=== PATIENT | female | born 1965 | race Caucasian/White ===

== ENCOUNTER 2024-05-04 14:46 | Observation (INO) | payer MEDICAID, SELFPAY ==
[2024-05-04 14:48] VITALS: BP 149/67; PULSE 109; RESP 18; TEMP 36.6; O2SAT 100
--- NOTE | 2024-05-04 15:16 | EKG12_ITS ---
Test Reason : GEN ILL Blood Pressure : */* mmHG Vent. Rate : 103 BPM Atrial Rate : * BPM P-R Int : * ms QRS Dur : 72 ms QT Int : 356 ms P-R-T Axes : * 44 -9 degrees QTcB Int : 466 ms Atrial fibrillation with rapid ventricular response Low voltage QRS Nonspecific T wave abnormality Abnormal ECG Confirmed by SIOBHAN VITALE, ABBY ([id number]), commercial production editor DEANN MARES ([id number]) on 05/07/2024 6:35:53 AM Referred By: Venkata Dos Santos Confirmed By: ABBY MCCANN MD
--- NOTE | 2024-05-04 15:20 | EDS_ITS ---
HPI History of Present Illness Chief Complaint: General Illness Informant: patient and spouse/S.O. Narrative Narrative: 58-year-old female presenting to the emergency department with chief complaint of blisters on legs and arms and generalized pain. Patient states that she has a history of atrial fibrillation and was seeing a financial reporting accountant to undergo cardioversion on her. However she states that they do not take her health insurance. She states that she has prescribed medications in a plastic bag that she brought with her. Upon reviewing these she states that none of these are new. She is anticus and as well as diltiazem and takes a aspirin a day. She is not on a blood thinner stating that she was prescribed 1 but has not been taking it. She states that she has been thinking about getting a different financial reporting accountant here in [place] but has not made an appointment yet. She states for the past week she has had some red spots on her legs which she describes as red blisters. They are now appearing on her arms and painful for her. She states that her arms and her legs are so painful that she has been unable to get out of bed. She states that she has missed several days of work. She denies any strokelike symptoms. She denies any fevers. She states that she has been drinking plenty of fluids but that her urine is very dark. She denies any orthopnea dyspnea or cough. She states that nothing really has changed today to make her come to emergency she just could not take her continued symptoms any longer. She has never been to this institution before states that she has typically gotten her care at [facility]. [facility] Medical History (Updated 05/04/24 @ 19:[address] Gabriel Correa, ) Sleep apnea Restless legs Obesity Depression Atrial fibrillation Home Medications ?Medication ?Instructions ?Recorded ?Last Taken ?Type aspirin 81 mg chewable tablet 1 tab PO DAILY 05/04/24 Unknown History (Susan Chewable Low Dose Aspirin) citalopram 20 mg tablet 10 mg PO DAILY 05/04/24 Unknown History diltiazem HCl 240 mg 240 mg PO DAILY 05/04/24 Unknown History capsule,extended release 24 hr dofetilide 250 mcg capsule 250 mcg PO BID 05/04/24 Unknown History duloxetine 30 mg capsule,delayed 60 mg PO DAILY 05/04/24 Unknown History release potassium chloride 20 mEq 20 meq PO DAILY 05/04/24 Unknown History tablet,extended release Allergy/AdvReac Type Severity Reaction Status Date / Time No Known Allergies Allergy Verified 05/04/24 14:48 Social History Smoking Status: Never smoker ROS ROS ED Constitutional Constitutional ED: Reports chills; Denies fever(s), sweats or weight loss Eyes Eyes: Denies change in vision or diplopia ENT ENT ED: Denies ear pain, rhinorrhea or sore throat Cardiovascular Cardiovascular: Reports palpitations and racing heartbeat; Denies chest pain or orthopnea Respiratory/Chest Respiratory/Chest: Denies cough, dyspnea or orthopnea Gastrointestinal Gastrointestinal: Denies abdominal pain, diarrhea, nausea or vomiting Genitourinary Genitourinary ED: Denies dysuria, hematuria or urinary frequency Musculoskeletal Musculoskeletal: Reports arthralgias, myalgias and other Details: Reports pain everywhere Integumentary Reports rash; Denies abscess Neurologic Neurologic: Reports other Details: Generalized weakness ; Denies headache(s) Psychiatric Psychiatric: Denies anxiety, depression, suicidal ideation or suicidal thoughts Endocrine Endocrinology: Denies polydipsia, polyphagia or polyuria Allergic/Immunologic Allergic/Immunologic ED: Denies mouth swelling, tongue swelling or urticaria EXAM Physical Exam Narrative Exam Narrative: Patient laying awkwardly in the bed. She states that she cannot readjust herself. I inform her it is just me in the room at this time that I am not able to lift her she is able to stand on the side of the bed and shuffle her feet to get herself repositioned and then lay back down. Const Vital Signs: 05/04/24 14:48 05/04/24 15:27 05/04/24 16:48 Temperature 97.8 F Temperature Source Oral Pulse Rate 109 H 91 Respiratory Rate 18 16 Respiratory Effort Normal Respiratory Pattern Normal Blood Pressure 149/67 H 131/82 H Blood Pressure Mean 94 98 Pulse Ox 100 99 Oxygen Delivery Method Room Air Room Air 05/04/24 18:00 05/04/24 19:17 05/04/24 20:00 Temperature 97.9 F Temperature Source Pulse Rate 112 H 98 90 Respiratory Rate 16 16 18 Respiratory Effort Respiratory Pattern Blood Pressure 119/76 125/81 H 111/84 H Blood Pressure Mean 90 95 93 Pulse Ox 93 94 Oxygen Delivery Method Room Air Positive well nourished, well developed and obese General Appearance ED: well developed and NAD Nutritional Appearance: obese HEENT Reports normocephalic, head/scalp atraumatic and moist mucous membranes Eyes PERRL and EOMs intact bilaterally Neck no lymphadenopathy, supple and no JVD Resp normal respiratory effort and clear to auscultation bilaterally Cardio no murmurs Rate: tachycardic Rhythm: abnormal rhythm irregularly irregular GI normal to inspection, nondistended, normoactive bowel sounds and non-tender Palpation: soft Back/Spine no CVA tenderness and normal ROM Extremity Extremity Narrative: Mild swelling of the bilateral lower extremities. Neuro oriented x3 and CN's II-XII intact bilaterally Sensorium / Orientation: alert Motor Exam: strength 5/5 throughout Psych mental status grossly normal Mood & Affect: Negative for depressed or tearful Skin no wounds Skin Narrative: There are nonblanching lesions located in the lower extremities most predominant below the knee. The left great toe near the first MTP joint shows some mild swelling compared to the right as well as some erythema. She has small circular lesions on her arms particularly of the left thumb. These are tender to palpation. MDM MDM MDM Narrative Medical decision making narrative: Differential diagnosis includes but not limited to thrombocytopenia coagulation disorders renal dysfunction electrolyte abnormalities anemia endocarditis/bacteremia heart failure ACS ITP TTP vasculitis Patient's white count 9.7 hemoglobin 11.9 platelet count 3 of 5. Normal coags BMP with a creatinine of 1.3 glucose 151 troponin is 3 urinalysis 25-50 red cells 5-10 white cells 1+ bacteria negative nitrates sent for culture. Her CRP returned significantly elevated at 162. Sed rate returns elevated at 65. Patient received Solu-Medrol and a ANCA was sent. Patient received oxycodone for pain. Clinically I think the patient most likely has a vasculitis. Given that she is significantly limited on her ability to ambulate and given her inflammatory markers I think it is reasonable that we bring her into the hospital for further evaluation. I will speak with the hospitalist. Of note the patient is not currently on anticoagulants. Her Ángel vas score would suggest that she should be on it. This was discussed with the hospitalist. History & Record Review Discussion w/independent historian: Patient and Significant other Lab Data Attestation: I reviewed the patient's lab results. Labs: Laboratory Results - last 24 hr 05/04/24 05/04/24 15:02 15:24 WBC 9.7 RBC 3.89 L Hgb 11.9 L Hct 36.8 L MCV 94.6 MCH 30.6 MCHC 32.3 RDW Std Deviation 43.2 RDW Coeff of Mary 12.6 Plt Count 305 MPV 8.8 Immature Gran % (Auto) 0.600 Neut % (Auto) 81.1 H Lymph % (Auto) 12.7 L [place] % (Auto) 4.9 Eos % (Auto) 0.4 Baso % (Auto) 0.3 Absolute Neuts (auto) 7.8 H Absolute Lymphs (auto) 1.23 Nucleated RBC % 0 ESR 65 H PT 14.2 INR 1.1 APTT 30.6 Sodium 134 L Potassium 4.0 Chloride 102 Carbon Dioxide 26.0 Anion Gap 6 BUN 16 Creatinine 1.30 H Est GFR (MDRD) Af Amer 54 L Est GFR (MDRD) Non-Af 45 L BUN/Creatinine Ratio 12.3 Glucose 151 H Calcium 9.7 Total Bilirubin 0.70 Direct Bilirubin 0.20 AST 34 ALT 27 Alkaline Phosphatase 82 Troponin I High Sens 3 C-React Prot Ext Range 162.00 H Total Protein 7.8 Albumin 2.6 L Globulin 5.2 H Urine Color Beth Urine Clarity Sl. Cloudy Urine pH 6.0 Ur Specific [place] 1.015 Urine Protein 100 H Urine Glucose (UA) Normal Urine Ketones Negative Urine Occult Blood 250 H Urine Nitrite Negative Urine Bilirubin Negative Urine Urobilinogen 1 H Ur Leukocyte Esterase 25 H Urine RBC 25-50 SEEN Urine WBC 5-10 SEEN Ur Squamous Epith Cells 0-5 SEEN Ur Transition Epith Cell 0-5 SEEN Urine Bacteria 1+ Fine Granular Casts 0-5 SEEN Urine Mucus 1+ Radiography Diagnostic Testing: Clinical Impression(s) from Imaging Studies Chest X-Ray 05/04/24 15:42 IMPRESSION: No radiographic evidence of acute cardiopulmonary disease. Electronically Signed: Kg Fallon MD at 17:09 EST , EKG Initial EKG: Attestation: I personally reviewed and interpreted this EKG as follows: Comments: Atrial fibrillation with rapid ventricular response of 103 bpm Management Discussion w/another healthcare provider: Hospitalist (Dr Kotsonis) Discharge Plan Dx/Rx/DC Orders Clinical Impression: Atrial fibrillation, Vasculitis Disposition Disposition: Acute Care Hospital [facility]
[2024-05-04 15:38] LABS: Color, Urine Amber (Yellow); Glucose, Dipstick Normal (Normal); Ketone-Dipstick Negative (Negative); Leukocyte Esterase-Dipstick 25 /ul (Negative); Nitrite-Dipstick Negative (Negative); Occult Blood-Urine 250 /ul (Negative); Protein-Dipstick 100 mg/dl (Negative); Specific Gravity, Urine 1.015 (1.002-1.030); Urine Bilirubin Dipstick Negative (Negative); Urine Clarity Sl. Cloudy (Clear); Urine Urobilinogen 1 mg/dl (Normal)
--- NOTE | 2024-05-04 15:42 | RAD_ITS ---
EXAM: XR CHEST, 1 VIEW CLINICAL INDICATION: tachycardia TECHNIQUE: Frontal view of the chest. COMPARISON: No relevant prior studies available. FINDINGS: LUNGS AND PLEURAL SPACES: Unremarkable. No consolidation or edema. No pneumothorax. No effusion. HEART: Unremarkable. Cardiac silhouette not enlarged. MEDIASTINUM: Central airways and mediastinal contour are unremarkable. BONES/JOINTS: Unremarkable. No acute fracture. SOFT TISSUES: Unremarkable. RAD/Chest 1 View (Portable) IMPRESSION: No radiographic evidence of acute cardiopulmonary disease. Electronically Signed: Kg Fallon MD at 17:09 EST ,
[2024-05-04 15:47] LABS: Bacteria 1+ /hpf (None Seen); Fine Granular Cast- Urine 0-5 SEEN /lpf (0-5); Mucous, Urine 1+ /hpf (<or=2+); Red Blood Cells-Urine 25-50 SEEN /hpf (0-5); Squamous Epithelial Cells - UA 0-5 SEEN /hpf (5-10); Transitional Epithelial - Ur 0-5 SEEN /hpf (0-5); White Blood Cells 5-10 SEEN /hpf (0-5)
[2024-05-04 15:50] LABS: Absolute Lymphocyte Count 1.23 X10^3/uL (0.83-4.51); Absolute Neutrophil Count 7.8 X10^3/uL (2.0-7.7); Basophil# 0.03 X10^3/uL; Basophil% 0.3 % (0-1); Eosinophil# 0.04 X10^3/uL; Eosinophils% 0.4 % (0-5); Hematocrit 36.8 % (37-47); Hemoglobin 11.9 g/dL (12.0-15.0); Lymphocyte # 1.23 X10^3/ul (0.83-4.51); Lymphocyte % 12.7 % (19-41); Mean Corp Hgb Conc 32.3 g/dL (32-36); Mean Corpuscular Hgb 30.6 pg (27.0-32.0); Mean Corpuscular Volume 94.6 fL (81-99); Mean Platelet Vol. 8.8 fl (6.2-12.0); Monocyte# 0.47 X10^3/uL; Monocyte% 4.9 % (0-10); NRBC Flagged by Analyzer 0 % (0-5); Neutrophil # 7.84 X10^3/uL (2.7-7.7); Neutrophil % 81.1 % (47-70); Platelet Count 305 K/mm3 (150-450); RBC Distribution Width CV 12.6 % (11.6-14.6); RBC Distribution Width SD 43.2 fl (35.1-43.9); Red Blood Count 3.89 M/mm3 (4.2-5.4); White Blood Count 9.7 K/mm3 (4.4-11.0)
[2024-05-04 15:54] LABS: International Normalized Ratio 1.1; Prothrombin Time (Protime)PT. 14.2 SECONDS (11.7-14.9)
[2024-05-04 15:55] LABS: Partial Thromboplast Time 30.6 Seconds (24.1-36.2)
[2024-05-04 16:10] LABS: AST(SGOT) 34 U/L (15-37); Alanine Aminotransfer ALT/SGPT 27 U/L (13-56); Albumin, Serum 2.6 g/dL (3.2-5.0); Alkaline Phosphatase 82 U/L (45-117); Anion Gap 6 (5-15); BUN 16 mg/dL (7-18); BUN/Creat Ratio 12.3 RATIO (10-20); Calcium,Total 9.7 mg/dL (8.5-10.1); Chloride 102 mmol/L (98-107); EST Glomerular Filtration Rate 45 mL/min (>60); Est Glom Filt Rate - Afr Amer 54 mL/min (>60); Globulin 5.2 g/dL (2.2-4.2); Glucose 151 mg/dL (74-106); Protein, Total 7.8 g/dL (6.4-8.2); Sodium Level 134 mmol/L (136-145); Troponin-I HS 3 pg/mL (3.0-54.0)
[2024-05-04 16:48] VITALS: BP 131/82; PULSE 91; RESP 16; O2SAT 99
[2024-05-04] MEDS: MethylPREDNISolone 125 MG/2 ML Vial IV (17:24)
[2024-05-04] MEDS: oxyCODONE 5 MG Tablet 10 MG PO (17:24)
[2024-05-04 18:00] VITALS: BP 119/76; PULSE 112; RESP 16; O2SAT 93
[2024-05-04 18:59] LABS: Erythrocyte Sedimentation Rate 65 mm/hr (0-30)
[2024-05-04 19:17] VITALS: BP 125/81; PULSE 98; RESP 16; TEMP 36.6; O2SAT 94; BMI 42.7
[2024-05-04 20:00] VITALS: BP 111/84; PULSE 90; RESP 18
--- NOTE | 2024-05-04 20:24 | HP.PCM.HOS_ITS ---
HPI - General General Date of Admission: 05/04/24 HPI Fahad PORTILLO, is a 58 F who presents to the hospital for bilateral lower extremity rash as well as joint pain and myalgias with difficulty ambulating. She states that she noticed the rash started several days ago on her lower extremities and has extended up to her abdomen as well as the palms of of her hands. A PNC ANCA are being obtained in the ER but she does have a purpuric rash with an ESR of 65 and a CRP of 162. Creatinine is 1.30 but is unclear if this is her baseline or an ANDREA, she says that she has been drinking a lot of fluids but her urine is still dark she does have red blood cells and elevated protein in her UA. She is also in chronic A-fib with her heart rate in the low 100s she is on Cardizem and Tikosyn and states that she is supposed to be on anticoagulation that she does remember the name of which she supposed to take it she has not taken it because she was not sure what the plan was, she states that she was supposed to be cardioverted as she has had several ablations that have failed for her A-fib. [facility] Medical History (Updated 05/04/24 @ 21:26 by Cindy Mcneill) Bipolar 1 disorder Anxiety Sleep apnea Restless legs Obesity Depression Atrial fibrillation Home Medications ?Medication ?Instructions ?Recorded ?Last Taken ?Type aspirin 81 mg chewable tablet 1 tab PO DAILY 05/04/24 Unknown History (Susan Chewable Low Dose Aspirin) citalopram 20 mg tablet 10 mg PO DAILY 05/04/24 Unknown History diltiazem HCl 240 mg 240 mg PO DAILY 05/04/24 Unknown History capsule,extended release 24 hr dofetilide 250 mcg capsule 250 mcg PO BID 05/04/24 Unknown History duloxetine 30 mg capsule,delayed 60 mg PO DAILY 05/04/24 Unknown History release potassium chloride 20 mEq 20 meq PO DAILY 05/04/24 Unknown History tablet,extended release Allergy/AdvReac Type Severity Reaction Status Date / Time No Known Allergies Allergy Verified 05/04/24 14:48 Family History (Updated 05/04/24 @ 20:[address] Venkata Dos Santos MD) Other Heart disease Surgical History (Updated 05/04/24 @ 21:26 by Cindy Mcneill) H/O: hysterectomy History of cholecystectomy History of cardiac ablation for atrial fibrillation Social History Smoking Status: Never smoker ROS Constitutional Constitutional: Denies chills, fatigue, fever(s) or malaise Eyes Eyes: Denies blurry vision ENT HEENT: Denies headache(s) or nasal discharge Cardiovascular Cardiovascular: Denies chest pain, dyspnea on exertion or syncope Respiratory/Chest Respiratory/Chest: Denies cough, shortness of breath at rest or shortness of breath with exertion Gastrointestinal Gastrointestinal: Denies constipation, diarrhea, nausea or vomiting Genitourinary Genitourinary: Denies dysuria Musculoskeletal Musculoskeletal: Reports joint stiffness and myalgias Integumentary Integumentary: Reports new lesions and rash Neurologic Neurologic: Denies focal weakness, numbness or tremor(s) Psychiatric Psychiatric: Denies anxiety or depression Vital Signs Vital Signs Vital Signs: 05/04/24 14:48 05/04/24 15:27 05/04/24 16:48 Temperature 97.8 F Temperature Source Oral Pulse Rate 109 H 91 Respiratory Rate 18 16 Respiratory Effort Normal Respiratory Pattern Normal Blood Pressure 149/67 H 131/82 H Blood Pressure Mean 94 98 Pulse Ox 100 99 Oxygen Delivery Method Room Air Room Air 05/04/24 18:00 05/04/24 19:17 05/04/24 20:00 Temperature 97.9 F Temperature Source Pulse Rate 112 H 98 90 Respiratory Rate 16 16 18 Respiratory Effort Respiratory Pattern Blood Pressure 119/76 125/81 H 111/84 H Blood Pressure Mean 90 95 93 Pulse Ox 93 94 Oxygen Delivery Method Room Air Weight Weight: 257 lb 0.944 oz Body Mass Index (BMI) 42.7 Physical Exam Narrative General: Alert, Oriented x3, Cooperative, No apparent distress HEENT: Atraumatic, PERRLA, EOMI, Normocephalic Oral: Moist Mucosa Neck: Supple, No JVD Lungs: Diminished, Normal air movement, No rhonchi, No wheeze, No rales Cardiovascular: Irregular rate and rhythm, Normal S1, Normal S2, No murmurs Abdomen: Soft, Non Tender, Non-Distended, No Hepato-splenomegaly Extremities: No edema, Capillary Refill Less than 3 Seconds Skin: He has bilateral lower extremity purpura with punctate lesions on her abdomen as well as the palms of her hands Musculoskeletal: Tenderness to palpation of her left great toe Neurological: No focal neurological deficits, Motor Exam 5/5 strength throughout, Sensory exam intact to light touch and pain Psych/Mental Status: Normal Affect, Appropriate Results Lab / Micro Data 05/04/24 15:24 05/04/24 15:24 Labs: Laboratory Results - last 24 hr 05/04/24 15:02: Urine Color Beth, Urine Clarity Sl. Cloudy, Urine pH 6.0, Ur Specific [place] 1.015, Urine Protein 100 H, Urine Glucose (UA) Normal, Urine Ketones Negative, Urine Occult Blood 250 H, Urine Nitrite Negative, Urine Bilirubin Negative, Urine Urobilinogen 1 H, Ur Leukocyte Esterase 25 H, Urine RBC 25-50 SEEN, Urine WBC 5-10 SEEN, Ur Squamous Epith Cells 0-5 SEEN, Ur Transition Epith Cell 0-5 SEEN, Urine Bacteria 1+, Fine Granular Casts 0-5 SEEN, Urine Mucus 1+ 05/04/24 15:24: WBC 9.7, RBC 3.89 L, Hgb 11.9 L, Hct 36.8 L, MCV 94.6, MCH 30.6, MCHC 32.3, RDW Std Deviation 43.2, RDW Coeff of Mary 12.6, Plt Count 305, MPV 8.8, Immature Gran % (Auto) 0.600, Neut % (Auto) 81.1 H, Lymph % (Auto) 12.7 L, [place] % (Auto) 4.9, Eos % (Auto) 0.4, Baso % (Auto) 0.3, Absolute Neuts (auto) 7.8 H, Absolute Lymphs (auto) 1.23, Nucleated RBC % 0, ESR 65 H, PT 14.2, INR 1.1, APTT 30.6, Sodium 134 L, Potassium 4.0, Chloride 102, Carbon Dioxide 26.0, Anion Gap 6, BUN 16, Creatinine 1.30 H, Est GFR (MDRD) Af Amer 54 L, Est GFR (MDRD) Non-Af 45 L, BUN/Creatinine Ratio 12.3, Glucose 151 H, Calcium 9.7, Total Bilirubin 0.70, Direct Bilirubin 0.20, AST 34, ALT 27, Alkaline Phosphatase 82, Troponin I High Sens 3, C-React Prot Ext Range 162.00 H, Total Protein 7.8, A lbumin 2.6 L, Globulin 5.2 H Imaging Radiology Impression Chest X-Ray 05/04/24 15:42 IMPRESSION: No radiographic evidence of acute cardiopulmonary disease. Electronically Signed: Kg Fallon MD at 17:09 EST , Assessment & Plan Assessment/Plan (1) Vasculitis: PLAN: Plan 1. 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 Continue with IV steroids ? Will consult nephrology for evaluation and management assisting her vasculitis given findings on her UA with elevated protein and hematuria, will hold off any anticoagulation pending their evaluation 2. Chronic A-fib ? Continue with her Cardizem and Tikosyn ? I would recommend restarting anticoagulation once nephrology has decided whether they wanted to pursue any kind of biopsy for tissue 3. Anxiety/depression ? She is supposed to be on citalopram and duloxetine, will discontinue her citalopram and continue with her duloxetine only given that she does not need dual serotonin reuptake inhibitors as well as the fact that citalopram and Tikosyn can cause QT prolongation DVT: Lovenox 75 minutes was spent on direct patient care, including documentation as well as chart review and collaboration with colleagues Charges/Coding Visit Charges Inpatient E&M: 96404 Init Hosp L3
[2024-05-04 21:20] VITALS: BMI 42.1
[2024-05-04] MEDS: Dofetilide 250 MCG Capsule PO (21:52)
[2024-05-04] MEDS: 0.9% Normal Saline (1000mL) 1,000 ML 100 ML IV (21:54)
[2024-05-04 22:00] VITALS: BP 137/81; PULSE 103; RESP 18; TEMP 36.2; O2SAT 96
[2024-05-05 04:00] VITALS: BP 123/83; PULSE 82; RESP 18; TEMP 36.8; O2SAT 98
[2024-05-05 06:55] LABS: Absolute Neutrophil Count 7.4 X10^3/uL (2.0-7.7); Basophil# 0.01 X10^3/uL; Basophil% 0.1 % (0-1); Hematocrit 35.9 % (37-47); Hemoglobin 11.4 g/dL (12.0-15.0); Lymphocyte % 8.5 % (19-41); Mean Corp Hgb Conc 31.8 g/dL (32-36); Mean Corpuscular Hgb 30.2 pg (27.0-32.0); Mean Platelet Vol. 8.8 fl (6.2-12.0); Monocyte# 0.07 X10^3/uL; Monocyte% 0.9 % (0-10); NRBC Flagged by Analyzer 0 % (0-5); Neutrophil # 7.38 X10^3/uL (2.7-7.7); Platelet Count 287 K/mm3 (150-450); RBC Distribution Width CV 12.3 % (11.6-14.6); RBC Distribution Width SD 42.9 fl (35.1-43.9); Red Blood Count 3.78 M/mm3 (4.2-5.4); White Blood Count 8.2 K/mm3 (4.4-11.0)
[2024-05-05 07:11] LABS: Anion Gap 5 (5-15); BUN 19 mg/dL (7-18); BUN/Creat Ratio 17.6 RATIO (10-20); Calcium,Total 9.3 mg/dL (8.5-10.1); Chloride 105 mmol/L (98-107); Creatinine, Serum 1.08 mg/dL (0.55-1.02); EST Glomerular Filtration Rate 56 mL/min (>60); Est Glom Filt Rate - Afr Amer 67 mL/min (>60); Glucose 176 mg/dL (74-106); Potassium 4.6 mmol/L (3.5-5.1); Sodium Level 135 mmol/L (136-145)
[2024-05-05 08:47] VITALS: BP 116/73; PULSE 83; RESP 17; TEMP 36.6; O2SAT 97
[2024-05-05] MEDS: 0.9% Normal Saline (1000mL) 1,000 ML 100 ML IV (08:48)
[2024-05-05] MEDS: Aspirin 81 MG TAB.CHEW PO (08:50)
[2024-05-05] MEDS: DULoxetine Hcl 60 MG Capsule PO (08:50)
[2024-05-05] MEDS: Enoxaparin 40 MG/0.4 ML Syringe SC (08:50)
[2024-05-05] MEDS: Potassium Chloride Oral Tablet 20 MEQ PO (08:50)
[2024-05-05] MEDS: dilTIAZem CD 240 MG Capsule PO (08:50)
[2024-05-05] MEDS: Dofetilide 250 MCG Capsule PO ×2 (08:52→22:01)
--- NOTE | 2024-05-05 10:21 | CASEMGMT ---
MOLLY CASTILLO Assessment: Face to Face with pt for initial transition planning/care coordination assessment. RN ANNA introduced self and role at [facility], pt voices understanding and consents to assessment. Pt is A&O x4 and answers all questions appropriately at this time. Pt sitting up in bed in no distress with sig other at bedside. Pt agreeable to assessment with sig other present. Care providers, pharmacy, and demographics verified/updated. Admitting Dx: vasculitis with afib PCP:Anthony Specialists:massiel Carcamo Pharmacy: [facility] Insurance: [employer] Prescription Benefit: yes LNOK: Yash Carrasco, sig other Living Arrangements: Pt lives with sig other in a single story home with 1 step to enter. Pt reports she is I in ADL/IADLs and denies concerns at home. Transportation: Pt drives self and denies concerns with transportation. DME:CPAP HHC/SNF: Denies hx of Pt states no concerns with going home at time of dc. Pt states no further concerns/needs. CM to follow. Advised pt to ask CM if any further question/concerns/needs arise, voices understanding. Pt Goal: Home Plan: Home, follow for manuel Galaviz RN, CM
[2024-05-05 10:42] LABS: Protein, Urine (Random) 55.4 mg/dL (<11.9); Protein:Creat Ratio 351 mg/g CRE (0-200)
--- NOTE | 2024-05-05 13:20 | PCM.PROGNOTE ---
Subjective Subjective Patient seen and examined. She had no active complaint. She still complains of vascular bilateral lower extremities. She said her urine was cola colored yesterday but is now clear. Review of systems otherwise negative. Objective Data Objective Data Vital Signs: Vital Signs Temp Pulse Resp BP Pulse Ox O2 Del Method 98 F 83 17 116/73 97 Room Air 05/05/24 08:47 05/05/24 08:47 05/05/24 08:47 05/05/24 08:47 05/05/24 08:47 05/05/24 09:01 Oxygen Delivery Method Room Air Weight: 253 lb 4.978 oz Body Mass Index (BMI) 42.1 Intake & Output: Intake and Output for Last 24 Hours 05/03/24 05/04/24 05/05/24 23:59 23:59 23:59 Intake Total 1340 / 1340 Balance 1340 / 1340 Lab / Micro Data 05/05/24 06:15 05/05/24 06:15 Labs: Laboratory Results - last 24 hr 05/04/24 15:02: Urine Color Beth, Urine Clarity Sl. Cloudy, Urine pH 6.0, Ur Specific [place] 1.015, Urine Protein 100 H, Urine Glucose (UA) Normal, Urine Ketones Negative, Urine Occult Blood 250 H, Urine Nitrite Negative, Urine Bilirubin Negative, Urine Urobilinogen 1 H, Ur Leukocyte Esterase 25 H, Urine RBC 25-50 SEEN, Urine WBC 5-10 SEEN, Ur Squamous Epith Cells 0-5 SEEN, Ur Transition Epith Cell 0-5 SEEN, Urine Bacteria 1+, Fine Granular Casts 0-5 SEEN, Urine Mucus 1+ 05/04/24 15:24: WBC 9.7, RBC 3.89 L, Hgb 11.9 L, Hct 36.8 L, MCV 94.6, MCH 30.6, MCHC 32.3, RDW Std Deviation 43.2, RDW Coeff of Mary 12.6, Plt Count 305, MPV 8.8, Immature Gran % (Auto) 0.600, Neut % (Auto) 81.1 H, Lymph % (Auto) 12.7 L, [place] % (Auto) 4.9, Eos % (Auto) 0.4, Baso % (Auto) 0.3, Absolute Neuts (auto) 7.8 H, Absolute Lymphs (auto) 1.23, Nucleated RBC % 0, ESR 65 H, PT 14.2, INR 1.1, APTT 30.6, Sodium 134 L, Potassium 4.0, Chloride 102, Carbon Dioxide 26.0, Anion Gap 6, BUN 16, Creatinine 1.30 H, Est GFR (MDRD) Af Amer 54 L, Est GFR (MDRD) Non-Af 45 L, BUN/Creatinine Ratio 12.3, Glucose 151 H, Calcium 9.7, Total Bilirubin 0.70, Direct Bilirubin 0.20, AST 34, ALT 27, Alkaline Phosphatase 82, Troponin I High Sens 3, C-React Prot Ext Range 162.00 H, Total Protein 7.8, Albumin 2.6 L, Globulin 5.2 H 05/05/24 06:15: WBC 8.2, RBC 3.78 L, Hgb 11.4 L, Hct 35.9 L, MCV 95.0, MCH 30.2, MCHC 31.8 L, RDW Std Deviation 42.9, RDW Coeff of Mary 12.3, Plt Count 287, MPV 8.8, Immature Gran % (Auto) 0.500, Neut % (Auto) 90.0 H, Lymph % (Auto) 8.5 L, [place] % (Auto) 0.9, Eos % (Auto) 0.0, Baso % (Auto) 0.1, Absolute Neuts (auto) 7.4, Absolute Lymphs (auto) 0.70 L, Nucleated RBC % 0, Sodium 135 L, Potassium 4.6, Chloride 105, Carbon Dioxide 25.0, Anion Gap 5, BUN 19 H, Creatinine 1.08 H, Estim Creat Clear Calc 73.60, Est GFR (MDRD) Af Amer 67, Est GFR (MDRD) Non-Af 56 L, BUN/Creatinine Ratio 17.6, Glucose 176 H, Calcium 9.3 05/05/24 08:45: DAVID-1 Antibody TNP, SS-A/Ro IgG Antibody TNP, SS-B/La IgG Antibody TNP, Sm (Alfaro) Antibody TNP, [employer] Antibody TNP, Scl-70 Scleroderma Ab TNP, Double Strand DNA Ab TNP 05/05/24 08:45: Double Strand DNA Ab TNP 05/05/24 08:45: Double Strand DNA Ab TNP, Antichromatin Antibodies TNP, Centromere B Antibody TNP 05/05/24 10:19: U Random Total Protein 55.4 H, Urine Creatinine 158.00, Protein/Creatinin Ratio 351 H Radiography Diagnostic Testing: Radiology Impression Chest X-Ray 05/04/24 15:42 IMPRESSION: No radiographic evidence of acute cardiopulmonary disease. Electronically Signed: Kg Fallon MD at 17:09 EST Reading Location ID and State: [facility] / [place] Tel , Service support , Physical Exam Const alert, oriented x3, no apparent distress and well nourished General Appearance: cooperative HEENT normocephalic, moist oral mucous membranes and oropharynx normal Eyes PERRL and EOMs intact bilaterally Neck no lymphadenopathy and supple Lymph Lymphatic: no lymphadenopathy noted and no lymphedema noted Resp normal respiratory effort, normal air movement and clear to auscultation bilaterally Cardio regular rate, regular rhythm, S1 normal heart sound and S2 normal heart sound GI normal to inspection, nondistended, normoactive bowel sounds, soft to palpation, non-tender and non-distended Extremity normal capillary refill, no clubbing, cyanosis or edema and no calf tenderness General Extremity: no tenderness to palpation of joints or extremities Skin Skin Narrative: papular erythematous rash over lower legs, extending up to lower abdomen. General Skin Exam: no breakdown Neuro CN's II-XII intact bilaterally, no focal motor deficits and no sensory deficits noted Motor Exam: strength 5/5 throughout and general weakness Psych thought process normal and cooperative Appearance: appropriate Assessment & Plan Assessment/Plan (1) Vasculitis: PLAN: Plan #Rash, likely due to vasculitis has an erythematous, papular rash over lower extremities extending up to lower abdomen she also had ANDREA so concern is that this may be due to vasculitis C ANCA nad p ANCA ordered and pending Started on IV Solu-Medrol on admission. Nephrology consulted. Urinalysis showed elevated protein and hematuria. Will benefit from skin biopsy ESR and CRP elevated. #Chronic A-fib: On Cardizem and Tikosyn. Anticoagulants on hold as patient will benefit from biopsy #Anxiety and depression: On duloxetine. Citalopram discontinued on admission due to her being already on a serotonin reuptake inhibitor. DVT prophylaxis: SCDs. dc lovenox due to hematuria Charges/Coding Visit Charges Inpatient E&M: 39236 Subs Hosp L2
[2024-05-05 16:07] VITALS: BP 107/79; PULSE 93; RESP 14; TEMP 36.6; O2SAT 96
--- NOTE | 2024-05-05 19:15 | PCM.CONS.R ---
Assessment & Plan Assessment/Plan (1) Vasculitis: PLAN: has extensine non blanching rash. differential is fairly broad, vasculitis, infectious. no new drugs. no supplements. has 3 cats none new. will send blood cultures, hepatitis labs. serologies sent. dw Dr Cox. skin biopsy potentially. cr is better. HPI Consult Data Date of Consult: 05/05/24 HPI Narrative Reason for Consultation: vasculitis HPI Narrative: JANICE PORTILLO, is a 58 F who presents to hospital with rash. renal consulted for suspected renal vasculitis. no prior kidney disease. she says she had dark colored urine. now resolved. no flank pain/dysuria. no similar episodes in past. [facility] Medical History (Updated 05/04/24 @ 21:26 by Cindy Mcneill) Bipolar 1 disorder Anxiety Sleep apnea Restless legs Obesity Depression Atrial fibrillation Home Medications ?Medication ?Instructions ?Recorded ?Last Taken ?Type aspirin 81 mg chewable tablet 1 tab PO DAILY preventative 05/04/24 Unknown History (Susan Chewable Low Dose Aspirin) citalopram 20 mg tablet 10 mg PO DAILY mood 05/04/24 Unknown History diltiazem HCl 240 mg 240 mg PO DAILY heart 05/04/24 Unknown History capsule,extended release 24 hr dofetilide 250 mcg capsule 250 mcg PO BID heart 05/04/24 Unknown History duloxetine 30 mg capsule,delayed 60 mg PO DAILY mood 05/04/24 Unknown History release potassium chloride 20 mEq 20 meq PO DAILY suppliment 05/04/24 Unknown History tablet,extended release Allergy/AdvReac Type Severity Reaction Status Date / Time No Known Allergies Allergy Verified 05/04/24 14:48 Family History (Updated 05/04/24 @ 20:[address] Venkata Dos Santos MD) Other Heart disease Surgical History (Updated 05/04/24 @ 21:26 by Cindy Mcneill) H/O: hysterectomy History of cholecystectomy History of cardiac ablation for atrial fibrillation Social History Smoking Status: Never smoker ROS ROS Narrative negative except above Physical Exam Narrative Alert awake oriented x 3 no obvious distress no pallor no icterus no JVD s1s2 no murmurs lungs clear abdomen soft no organomegaly Rash + Lab / Micro Data 05/05/24 06:15 05/05/24 06:15 Labs: Laboratory Results - last 24 hr 05/05/24 06:15: WBC 8.2, RBC 3.78 L, Hgb 11.4 L, Hct 35.9 L, MCV 95.0, MCH 30.2, MCHC 31.8 L, RDW Std Deviation 42.9, RDW Coeff of Mary 12.3, Plt Count 287, MPV 8.8, Immature Gran % (Auto) 0.500, Neut % (Auto) 90.0 H, Lymph % (Auto) 8.5 L, [place] % (Auto) 0.9, Eos % (Auto) 0.0, Baso % (Auto) 0.1, Absolute Neuts (auto) 7.4, Absolute Lymphs (auto) 0.70 L, Nucleated RBC % 0, Sodium 135 L, Potassium 4.6, Chloride 105, Carbon Dioxide 25.0, Anion Gap 5, BUN 19 H, Creatinine 1.08 H, Estim Creat Clear Calc 73.60, Est GFR (MDRD) Af Amer 67, Est GFR (MDRD) Non-Af 56 L, BUN/Creatinine Ratio 17.6, Glucose 176 H, Calcium 9.3 05/05/24 08:45: DAVID-1 Antibody TNP, SS-A/Ro IgG Antibody TNP, SS-B/La IgG Antibody TNP, Sm (Alfaro) Antibody TNP, POTTERY [employer] DES[employer]ER Antibody TNP, Scl-70 Scleroderma Ab TNP, Double Strand DNA Ab TNP 05/05/24 08:45: Double Strand DNA Ab TNP 05/05/24 08:45: Double Strand DNA Ab TNP, Antichromatin Antibodies TNP, Centromere B Antibody TNP 05/05/24 10:19: U Random Total Protein 55.4 H, Urine Creatinine 158.00, Protein/Creatinin Ratio 351 H
[2024-05-05 21:59] VITALS: BP 121/84; PULSE 114; RESP 16; TEMP 36.7; O2SAT 96
--- NOTE | 2024-05-06 | LES_PTH ---
PATIENT: JANICE PORTILLO LOC: [facility] U#:[id number] AGE/SX: 58/F ROOM: [facility] RE05/04/[address]: Dr. Familia Huynh MD : 1965 BED: 1 DIS: 05/07/2024 SPEC #: [id number] RECD: 05/06/24 13:12 STATUS: MILAD REDat #: [id number] RANDAL: 05/06/24 00:[address]: Nimesh Morel DEPT: SURGICAL PATHOLOGY RECD BY: Jose Cruz Fernandez ENTERED: 05/07/24 10:18 SP TYPE: Lesion OTHR DR: MD Dr. Rudy Renee DO Dr. Nana Yaa Koram, MD Dr. Nicholas F Kotsonis, MD Dr. Prakash Chand, MD Dr. Rohini Kalisetti, MD Tissues: Skin of leg, NOS Procedures: Surgery Specimen Level IV HEADER OPERATION: Not noted PRE-OP DIAGNOSIS: Vasculitis with AFIB TISSUE SUBMITTED: Left lower extremity kaufman, 4mm punch biopsy MICROSCOPIC DIAGNOSIS Left lower extremity kaufman lesion, punch biopsy: Consistent with neutrophilic (leukocytoclastic) vasculitis. See comment. KIRSTEN 05/10/2024 COMMENT Correlation with clinical, laboratory findings and appropriate follow up are necessary. Case has been reviewed in consultation with Dr. Reyez who concurs with the above diagnosis. IDC:[email or web address] MICROSCOPIC DESCRIPTION Slides are reviewed. GROSS DESCRIPTION Received is one container labeled with the patient name and designated left kaufman punch biopsy. The specimen consists of a punch biopsy of zapata-white skin that measures 0.4 cm in length and 0.4 cm in diameter. The specimen is totally submitted in one cassette. /KIRSTEN:shabbir 05/07/24 TC:2 CPT:88355
[2024-05-06 04:00] VITALS: BP 135/80; PULSE 99; RESP 16; TEMP 36.9; O2SAT 96
[2024-05-06 04:48] LABS: Absolute Lymphocyte Count 1.28 X10^3/uL (0.83-4.51); Absolute Neutrophil Count 17.3 X10^3/uL (2.0-7.7); Basophil# 0.03 X10^3/uL; Basophil% 0.2 % (0-1); Hematocrit 34.2 % (37-47); Lymphocyte # 1.28 X10^3/ul (0.83-4.51); Lymphocyte % 6.7 % (19-41); Mean Corp Hgb Conc 32.2 g/dL (32-36); Mean Corpuscular Hgb 30.6 pg (27.0-32.0); Mean Corpuscular Volume 95.3 fL (81-99); Mean Platelet Vol. 8.7 fl (6.2-12.0); Monocyte# 0.29 X10^3/uL; Monocyte% 1.5 % (0-10); NRBC Flagged by Analyzer 0 % (0-5); Neutrophil # 17.26 X10^3/uL (2.7-7.7); Neutrophil % 90.1 % (47-70); Platelet Count 357 K/mm3 (150-450); RBC Distribution Width CV 12.4 % (11.6-14.6); RBC Distribution Width SD 43.2 fl (35.1-43.9); Red Blood Count 3.59 M/mm3 (4.2-5.4); White Blood Count 19.1 K/mm3 (4.4-11.0)
[2024-05-06 05:20] LABS: Anion Gap 6 (5-15); BUN 27 mg/dL (7-18); BUN/Creat Ratio 24.1 RATIO (10-20); Calcium,Total 9.5 mg/dL (8.5-10.1); Chloride 107 mmol/L (98-107); Creatinine, Serum 1.12 mg/dL (0.55-1.02); EST Glomerular Filtration Rate 53 mL/min (>60); Est Glom Filt Rate - Afr Amer 65 mL/min (>60); Estimated Creatinine Clearance 71.01 ml/min; Glucose 170 mg/dL (74-106); Potassium 4.2 mmol/L (3.5-5.1); Sodium Level 137 mmol/L (136-145)
[2024-05-06] MEDS: 0.9% Saline Lock 10 ML Syringe IV (06:11)
[2024-05-06 09:29] VITALS: BP 147/98; PULSE 93; RESP 18; TEMP 36.4; O2SAT 96
[2024-05-06] MEDS: DULoxetine Hcl 60 MG Capsule PO (09:29)
[2024-05-06] MEDS: dilTIAZem CD 240 MG Capsule PO (09:29)
[2024-05-06] MEDS: Potassium Chloride Oral Tablet 20 MEQ PO (09:29)
[2024-05-06] MEDS: Aspirin 81 MG TAB.CHEW PO (09:29)
[2024-05-06] MEDS: Dofetilide 250 MCG Capsule PO ×2 (09:29→21:18)
--- NOTE | 2024-05-06 11:58 | PN_ITS ---
Subjective Subjective Patient seen and examined. She had no active complaints. Review of systems otherwise negative. She has remained hemodynamically stable. Objective Data Objective Data Vital Signs: Vital Signs Temp Pulse Resp BP Pulse Ox O2 Del Method 97.5 F L 93 18 147/98 H 96 Room Air 05/06/24 09:29 05/06/24 09:29 05/06/24 09:29 05/06/24 09:29 05/06/24 09:29 05/06/24 09:29 Oxygen Delivery Method Room Air Weight: 253 lb 8.505 oz Body Mass Index (BMI) 42.1 Intake & Output: Intake and Output for Last 24 Hours 05/04/24 05/05/24 05/06/24 23:59 23:59 23:59 Intake Total 3415 / 3655 600 / 600 Balance 3415 / 3655 600 / 600 Lab / Micro Data 05/06/24 04:36 05/06/24 04:36 Labs: Laboratory Results - last 24 hr 05/06/24 04:36: WBC 19.1 H, RBC 3.59 L, Hgb 11.0 L, Hct 34.2 L, MCV 95.3, MCH 30.6, MCHC 32.2, RDW Std Deviation 43.2, RDW Coeff of Mary 12.4, Plt Count 357, MPV 8.7, Immature Gran % (Auto) 1.500 H, Neut % (Auto) 90.1 H, Lymph % (Auto) 6.7 L, [place] % (Auto) 1.5, Eos % (Auto) 0.0, Baso % (Auto) 0.2, Absolute Neuts (auto) 17.3 H, Absolute Lymphs (auto) 1.28, Nucleated RBC % 0, Sodium 137, Potassium 4.2, Chloride 107, Carbon Dioxide 24.0, Anion Gap 6, BUN 27 H, C reatinine 1.12 H, Estim Creat Clear Calc 71.01, Est GFR (MDRD) Af Amer 65, Est GFR (MDRD) Non-Af 53 L, BUN/Creatinine Ratio 24.1 H, Glucose 170 H, Calcium 9.5 Micro: Microbiology 05/04/24 15:02 Urine, Clean Catch Urine Culture - Preliminary Mixed Gram Pos & Gram Neg Org Physical Exam Const alert, oriented x3, no apparent distress and well nourished General Appearance: cooperative HEENT normocephalic, head/scalp atraumatic, moist oral mucous membranes and oropharynx normal Eyes PERRL and EOMs intact bilaterally Neck no lymphadenopathy and supple Lymph Lymphatic: no lymphadenopathy noted and no lymphedema noted Resp normal respiratory effort, normal air movement and clear to auscultation bilaterally Cardio regular rate, regular rhythm, S1 normal heart sound and S2 normal heart sound GI normal to inspection, nondistended, normoactive bowel sounds, soft to palpation, non-tender and non-distended Extremity normal capillary refill, no clubbing, cyanosis or edema and no calf tenderness General Extremity: no tenderness to palpation of joints or extremities Skin Skin Narrative: papular erythematous rash over lower legs,with larger areas of confluence on RLE, extending up to lower abdomen. Neuro CN's II-XII intact bilaterally, no focal motor deficits and no sensory deficits noted Motor Exam: strength 5/5 throughout and general weakness Psych thought process normal and cooperative Appearance: appropriate Assessment & Plan Assessment/Plan (1) Vasculitis: PLAN: Plan #Rash, likely due to vasculitis * has an erythematous, papular rash over lower extremities extending up to lower abdomen * she also had ANDREA so concern is that this may be due to vasculitis * C ANCA nad p ANCA ordered and pending * Started on IV Solu-Medrol on admission. Nephrology consulted. * Urinalysis showed elevated protein and hematuria. * Will benefit from skin biopsy * ESR and CRP elevated. * general surgery consulted for skin biopsy. * Discussed with nephrology. Will DC steroids as this could be infectious and if it is the steroids will make it worse. * #Chronic A-fib: On Cardizem and Tikosyn. Anticoagulants on hold as patient will benefit from biopsy #Anxiety and depression: * On duloxetine. Citalopram discontinued on admission due to her being already on a serotonin reuptake inhibitor. * DVT prophylaxis: SCDs. Disposition: * Anticipate patient can go home after she gets the skin biopsy and will get blood culture results to see if there is any infectious etiology. * She will need follow-up with rheumatology on outpatient basis once we have a conclusive diagnosis. Charges/Coding Visit Charges Inpatient E&M: 85639 Subs Hosp L2
[2024-05-06 13:17] LABS: Pathology Skin Biopsy SEE PATHOLOGY REPORT
--- NOTE | 2024-05-06 13:17 | CON.PCM.SX_ITS ---
HPI Consult Data Date of Consult: 05/06/24 HPI Narrative Reason for Consultation: Skin biopsy HPI Narrative: JANICE PORTILLO, is a 58 F who presented to the hospital with complaints of lower extremity rash for the past 7 days or so. It sounds as though she was also having myalgias and joint pain. She stated that the rash began on her upper thighs and then seem to progress towards her feet. She has also noticed these on her upper extremities as well. She was subsequently admitted for medical workup. It has been requested that general surgery perform a skin biopsy of one of the lesions. This was discussed with the patient. We discussed the details of the procedure as well as risks and benefits. She wishes to proceed. JANICE PORTILLO, is a 58 F who presents to the hospital for bilateral lower extremity rash as well as joint pain and myalgias with difficulty ambulating. She states that she noticed the rash started several days ago on her lower extremities and has extended up to her abdomen as well as the palms of of her hands. A PNC ANCA are being obtained in the ER but she does have a purpuric rash with an ESR of 65 and a CRP of 162. Creatinine is 1.30 but is unclear if this is her baseline or an ANDREA, she says that she has been drinking a lot of fluids but her urine is still dark she does have red blood cells and elevated protein in her UA. She is also in chronic A-fib with her heart rate in the low 100s she is on Cardizem and Tikosyn and states that she is supposed to be on anticoagulation that she does remember the name of which she supposed to take it she has not taken it because she was not sure what the plan was, she states that she was supposed to be cardioverted as she has had several ablations that have failed for her A-fib. [facility] Medical History (Updated 05/04/24 @ 21:26 by Cindy Mcneill) Bipolar 1 disorder Anxiety Sleep apnea Restless legs Obesity Depression Atrial fibrillation Home Medications ?Medication ?Instructions ?Recorded ?Last Taken ?Type aspirin 81 mg chewable tablet 1 tab PO DAILY preventative 05/04/24 Unknown History (Susan Chewable Low Dose Aspirin) citalopram 20 mg tablet 10 mg PO DAILY mood 05/04/24 Unknown History diltiazem HCl 240 mg 240 mg PO DAILY heart 05/04/24 Unknown History capsule,extended release 24 hr dofetilide 250 mcg capsule 250 mcg PO BID heart 05/04/24 Unknown History duloxetine 30 mg capsule,delayed 60 mg PO DAILY mood 05/04/24 Unknown History release potassium chloride 20 mEq 20 meq PO DAILY suppliment 05/04/24 Unknown History tablet,extended release Allergy/AdvReac Type Severity Reaction Status Date / Time No Known Allergies Allergy Verified 05/04/24 14:48 Family History (Updated 05/04/24 @ 20:[address] Venkata Dos Santos MD) Other Heart disease Surgical History (Updated 05/04/24 @ 21:26 by Cindy Mcneill) H/O: hysterectomy History of cholecystectomy History of cardiac ablation for atrial fibrillation Social History Smoking Status: Never smoker Lab / Micro Data 05/06/24 04:36 05/06/24 04:36 Labs: Laboratory Results - last 24 hr 05/06/24 04:36: WBC 19.1 H, RBC 3.59 L, Hgb 11.0 L, Hct 34.2 L, MCV 95.3, MCH 30.6, MCHC 32.2, RDW Std Deviation 43.2, RDW Coeff of Mary 12.4, Plt Count 357, MPV 8.7, Immature Gran % (Auto) 1.500 H, Neut % (Auto) 90.1 H, Lymph % (Auto) 6.7 L, [place] % (Auto) 1.5, Eos % (Auto) 0.0, Baso % (Auto) 0.2, Absolute Neuts (auto) 17.3 H, Absolute Lymphs (auto) 1.28, Nucleated RBC % 0, Sodium 137, Potassium 4.2, Chloride 107, Carbon Dioxide 24.0, Anion Gap 6, BUN 27 H, C reatinine 1.12 H, Estim Creat Clear Calc 71.01, Est GFR (MDRD) Af Amer 65, Est GFR (MDRD) Non-Af 53 L, BUN/Creatinine Ratio 24.1 H, Glucose 170 H, Calcium 9.5 Micro: Microbiology 05/04/24 15:02 Urine, Clean Catch Urine Culture - Preliminary Mixed Gram Pos & Gram Neg Org
--- NOTE | 2024-05-06 13:17 | EX.PCM.CON.S ---
Assessment & Plan Assessment/Plan (1) Vasculitis: PLAN: Plan The patient is a 58-year-old female who presented with a vasculitis type rash involving the lower extremities. Full-thickness skin punch biopsy was performed today. She tolerated this well. This was sent to pathology for review. HPI Consult Data Date of Consult: 05/06/24 HPI Narrative Reason for Consultation: Skin biopsy HPI Narrative: JANICE PORTILLO, is a 58 F who presented to the hospital with complaints of lower extremity rash for the past 7 days or so. It sounds as though she was also having myalgias and joint pain. She stated that the rash began on her upper thighs and then seem to progress towards her feet. She has also noticed these on her upper extremities as well. She was subsequently admitted for medical workup. It has been requested that general surgery perform a skin biopsy of one of the lesions. This was discussed with the patient. We discussed the details of the procedure as well as risks and benefits. She wishes to proceed. [facility] Medical History Bipolar 1 disorder Anxiety Sleep apnea Restless legs Obesity Depression Atrial fibrillation Home Medications ?Medication ?Instructions ?Recorded ?Last Taken ?Type aspirin 81 mg chewable tablet 1 tab PO DAILY preventative 05/04/24 Unknown History (Susan Chewable Low Dose Aspirin) citalopram 20 mg tablet 10 mg PO DAILY mood 05/04/24 Unknown History diltiazem HCl 240 mg 240 mg PO DAILY heart 05/04/24 Unknown History capsule,extended release 24 hr dofetilide 250 mcg capsule 250 mcg PO BID heart 05/04/24 Unknown History duloxetine 30 mg capsule,delayed 60 mg PO DAILY mood 05/04/24 Unknown History release potassium chloride 20 mEq 20 meq PO DAILY suppliment 05/04/24 Unknown History tablet,extended release Allergy/AdvReac Type Severity Reaction Status Date / Time No Known Allergies Allergy Verified 05/04/24 14:48 Family History Other Heart disease Surgical History H/O: hysterectomy History of cholecystectomy History of cardiac ablation for atrial fibrillation Social History Smoking Status: Never smoker ROS Eyes Eyes: Reports systems reviewed and no addt'l complaints, except as documented ENT HEENT: Reports systems reviewed and no addt'l complaints, except as documented Cardiovascular Cardiovascular: Reports systems reviewed and no addt'l complaints, except as documented Respiratory/Chest Respiratory/Chest: Reports systems reviewed and no addt'l complaints, except as documented Gastrointestinal Gastrointestinal: Reports systems reviewed and no addt'l complaints, except as documented Genitourinary Genitourinary: Reports systems reviewed and no addt'l complaints, except as documented Musculoskeletal Musculoskeletal: Reports systems reviewed and no addt'l complaints, except as documented Integumentary Integumentary: Reports systems reviewed and no addt'l complaints, except as documented Neurologic Neurologic: Reports systems reviewed and no addt'l complaints, except as documented Physical Exam Narrative She is alert and oriented x 3. She is in no acute distress Examination of the skin reveals red rash involving the lower extremities as well as upper extremities. This appears to be somewhat maculopapular. Possibly related to vasculitis. We discussed the details of a biopsy and she gave verbal consent to proceed Procedure note: With the patient in her hospital bed, the left lower extremity was then prepped and draped in the usual sterile manner using ChloraPrep. I selected 1 particular lesion. Local anesthetic was injected into the area. A 4 mm skin punch biopsy tool was then used to take a biopsy of full-thickness skin from this lesion. I tried to include the edge of the lesion as well as a small rim of normal skin. Hemostasis was excellent. The specimen was placed into specimen cup. I then applied silver nitrate to ensure hemostasis. Large Band-Aid was then applied. She tolerated the procedure well. Lab / Micro Data 05/06/24 04:36 05/06/24 04:36 Labs: Laboratory Results - last 24 hr 05/06/24 04:36: WBC 19.1 H, RBC 3.59 L, Hgb 11.0 L, Hct 34.2 L, MCV 95.3, MCH 30.6, MCHC 32.2, RDW Std Deviation 43.2, RDW Coeff of Mary 12.4, Plt Count 357, MPV 8.7, Immature Gran % (Auto) 1.500 H, Neut % (Auto) 90.1 H, Lymph % (Auto) 6.7 L, [place] % (Auto) 1.5, Eos % (Auto) 0.0, Baso % (Auto) 0.2, Absolute Neuts (auto) 17.3 H, Absolute Lymphs (auto) 1.28, Nucleated RBC % 0, Sodium 137, Potassium 4.2, Chloride 107, Carbon Dioxide 24.0, Anion Gap 6, BUN 27 H, Creatinine 1.12 H, Estim Creat Clear Calc 71.01, Est GFR (MDRD) Af Amer 65, Est GFR (MDRD) Non-Af 53 L, BUN/Creatinine Ratio 24.1 H, Glucose 170 H, Calcium 9.5 Micro: Microbiology 05/04/24 15:02 Urine, Clean Catch Urine Culture - Preliminary Mixed Gram Pos & Gram Neg Org Charges/Coding Multi Select Codes Visit Charges Visit Charges: 10780 Init Hosp L2 Integumentary Integumentary CPT Codes: 76086 Punch bx skin single lesion
[2024-05-06 15:10] VITALS: BP 138/81; PULSE 91; RESP 18; TEMP 36.6; O2SAT 97
[2024-05-06 21:20] VITALS: BP 157/98; PULSE 97; RESP 18; TEMP 36.4; O2SAT 97
[2024-05-07 04:00] VITALS: BP 133/105; PULSE 88; RESP 18; TEMP 36.4; O2SAT 97
[2024-05-07 07:07] LABS: Absolute Lymphocyte Count 2.56 X10^3/uL (0.83-4.51); Basophil# 0.03 X10^3/uL; Basophil% 0.2 % (0-1); Hematocrit 34.1 % (37-47); Hemoglobin 10.8 g/dL (12.0-15.0); Lymphocyte # 2.56 X10^3/ul (0.83-4.51); Lymphocyte % 17.6 % (19-41); Mean Corp Hgb Conc 31.7 g/dL (32-36); Mean Corpuscular Hgb 30.1 pg (27.0-32.0); Mean Platelet Vol. 8.4 fl (6.2-12.0); Monocyte# 0.72 X10^3/uL; Monocyte% 4.9 % (0-10); NRBC Flagged by Analyzer 0 % (0-5); Neutrophil # 10.97 X10^3/uL (2.7-7.7); Neutrophil % 75.2 % (47-70); Platelet Count 369 K/mm3 (150-450); RBC Distribution Width CV 12.5 % (11.6-14.6); RBC Distribution Width SD 43.7 fl (35.1-43.9); Red Blood Count 3.59 M/mm3 (4.2-5.4); White Blood Count 14.6 K/mm3 (4.4-11.0)
[2024-05-07 07:44] LABS: Anion Gap 6 (5-15); BUN 28 mg/dL (7-18); BUN/Creat Ratio 27.7 RATIO (10-20); Calcium,Total 9.3 mg/dL (8.5-10.1); Chloride 107 mmol/L (98-107); Creatinine, Serum 1.01 mg/dL (0.55-1.02); EST Glomerular Filtration Rate 60 mL/min (>60); Est Glom Filt Rate - Afr Amer 73 mL/min (>60); Estimated Creatinine Clearance 78.74 ml/min; Glucose 112 mg/dL (74-106); Potassium 4.2 mmol/L (3.5-5.1); Sodium Level 138 mmol/L (136-145)
[2024-05-07 08:29] VITALS: BP 155/91; PULSE 100; RESP 18; TEMP 36.8; O2SAT 98
[2024-05-07] MEDS: Aspirin 81 MG TAB.CHEW PO (08:31)
[2024-05-07] MEDS: dilTIAZem CD 240 MG Capsule PO (08:31)
[2024-05-07] MEDS: DULoxetine Hcl 60 MG Capsule PO (08:31)
[2024-05-07] MEDS: Potassium Chloride Oral Tablet 20 MEQ PO (08:32)
[2024-05-07] MEDS: Dofetilide 250 MCG Capsule PO (08:32)
[2024-05-07 08:50] LABS: HIV - WCH Non-Reactive (Nonreactive); Hepatitis B Surface Antigen Non-Reactive (Nonreactive)
[2024-05-07 09:00] LABS: Hepatitis C Antibody Non-Reactive (Nonreactive)
--- NOTE | 2024-05-07 09:42 | DCINST_ITS ---
Discharge Instructions DC O2, CPAP, BIPAP needs Home O2 Discharge instructions: No Follow Up Care Test Results: Test results from this visit will be discussed in further detail at your follow- up appointment, if applicable. Discharge Plan Admission Admit Date/Time: 05/04/24 20:24 Primary Reason for Your Visit: vasculitis Attending Provider: Familia Huynh Primary Care Provider: Cuca Cruz Consulting Providers: Kiki Ortiz; Venkata Dos Santos; Nimesh Morel; Rossi Cox; Rudy Nolan Discharge Orders/Prescriptions Prescriptions: Continued aspirin [Susan Chewable Aspirin] 81 mg tablet,chewable 1 tab PO DAILY dofetilide 250 mcg capsule 250 mcg PO BID duloxetine 30 mg capsule,delayed release(DR/EC) 60 mg PO DAILY citalopram 20 mg tablet 10 mg PO DAILY potassium chloride 20 mEq tablet extended release 20 meq PO DAILY diltiazem HCl 240 mg capsule,extended release 24hr 240 mg PO DAILY Referrals / Follow Up: Lai Morrow MD [Non-Staff] - Kiki Ortiz MD [Med Staff - Consulting] - Within 2 Weeks Floridalma Do MD [Med Staff - Facilities Specialist] - Within 2 Weeks (For possible leukocytoclastic vasculitis /rash) Cuca Cruz MD [Primary Care Provider] - Disposition Disposition (needs filled in before D/C Order can be placed): Home, Self Care
--- NOTE | 2024-05-07 11:44 | DS.PCM_ITS ---
Providers Date of Admission: 05/04/24 Date of Discharge: 05/07/24 Primary Care Physician: Dr. Cuca Cruz MD Consultations 05/04/24 21:10 Consult: Nephrology Routine Consulting Provider: Kiki Ortiz Reason for Consult: Vasculitis EMERGENT Consult: No Notified: Yes Date Notified: 05/05/24 Time Notified: 06:48 Method of Notification: Text 05/06/24 07:50 Consult: General Surgery Routine Consulting Provider: Nimesh Morel Reason for Consult: suspected vasculitis, needs skin biopsy EMERGENT Consult: No Notified: Yes Date Notified: 05/06/24 Time Notified: 07:50 Method of Notification: Text Reason For Visit: VASCULITIS WITH AFIB Diagnosis Discharge Diagnosis (1) Vasculitis: Status: Acute Code(s): I77.6 - Arteritis, unspecified Medications at Discharge Home Medications aspirin 81 mg chewable tablet (Susan Chewable Low Dose Aspirin) 1 tab PO DAILY preventative 05/04/24 citalopram 20 mg tablet 10 mg PO DAILY mood 05/04/24 diltiazem HCl 240 mg capsule,extended release 24 hr 240 mg PO DAILY heart 05/04/24 dofetilide 250 mcg capsule 250 mcg PO BID heart 05/04/24 duloxetine 30 mg capsule,delayed release 60 mg PO DAILY mood 05/04/24 potassium chloride 20 mEq tablet,extended release 20 meq PO DAILY suppliment 05/04/24 Weight / BMI Weight Weight: 253 lb 8.505 oz Body Mass Index (BMI) 42.1 ABG / Lab / Microbiology Data 05/07/24 06:31 05/07/24 06:31 Laboratory: Laboratory Results - last 24 hr 05/05/24 08:45: Hep Bs Antigen Non-Reactive, Hepatitis C Antibody Non-Reactive, HIV 1&2 Antibody Non-Reactive 05/07/24 06:31: WBC 14.6 H, RBC 3.59 L, Hgb 10.8 L, Hct 34.1 L, MCV 95.0, MCH 30.1, MCHC 31.7 L, RDW Std Deviation 43.7, RDW Coeff of Mary 12.5, Plt Count 369, MPV 8.4, Immature Gran % (Auto) 2.100 H, Neut % (Auto) 75.2 H, Lymph % (Auto) 17.6 L, [place] % (Auto) 4.9, Eos % (Auto) 0.0, Baso % (Auto) 0.2, Absolute Neuts (auto) 11.0 H, Absolute Lymphs (auto) 2.56, Nucleated RBC % 0, Sodium 138, Potassium 4.2, Chloride 107, Carbon Dioxide 25.0, Anion Gap 6, BUN 28 H, Creatinine 1.01, Estim Creat Clear Calc 78.74, Est GFR (MDRD) Af Amer 73, Est GFR (MDRD) Non-Af 60, BUN/Creatinine Ratio 27.7 H, Glucose 112 H, Calcium 9.3 Microbiology: Microbiology 05/04/24 15:02 Urine, Clean Catch Urine Culture - Preliminary Mixed Gram Pos & Gram Neg Org D/C Instructions Discharge Diet: Low fat / Low cholesterol and 2000 mg Sodium Diet Discharge Activity: Return to Normal Activity Weight Bearing Status: Weight bearing as tolerated Call your doctor if you observe: Fever of 101 or Higher, Coldness, Increased Pain, Numbness or Tingling, Change in Color, Inability to urinate, Inability to have a bowel movement, Shortness of breath, Dizziness, Fainting spells, Swelling in the ankles, Chest pain, Prolonged hiccupping, Increased palpitations (irregular heartbeat) and Calf discomfort DC O2, CPAP, BIPAP Needs Home O2 Discharge instructions: No When: IN 2 WEEKS Meaningful Use Info Meaningful Use Meaningful Use Diagnoses (Choose all that apply): None applicable Ischemic Stroke Statin Dosing Therapy Reference: STATIN DOSE THERAPY REFERENCE: * Patients > 75 years receive moderate or high dose statin therapy. * Patients 75 years or YOUNGER should receive HIGH intensity statin dose unless contraindicated. You will be required to document reason for non-treatment if statin daily dose does not meet guidelines. HIGH DOSE STATIN THERAPY DAILY Atorvastatin > than or = to 40 mg Rosuvastatin > than or = to 20 mg Amlodipine + Atorvastatin > than or = to 2.5/40 mg Ezetimibe + Simvastatin 10/80 mg Simvastatin 80mg Discharge Plan Admission Admit Date/Time: 05/04/24 20:24 Primary Reason for Your Visit: vasculitis Attending Provider: Familia Huynh Primary Care Provider: Cuca Cruz Consulting Providers: Kiki Ortiz; Venkata Dos Santos; Nimesh Morel; Rossi Cox; Rudy Nolan Discharge Orders/Prescriptions Prescriptions: Continued aspirin [Susan Chewable Aspirin] 81 mg tablet,chewable 1 tab PO DAILY dofetilide 250 mcg capsule 250 mcg PO BID duloxetine 30 mg capsule,delayed release(DR/EC) 60 mg PO DAILY citalopram 20 mg tablet 10 mg PO DAILY potassium chloride 20 mEq tablet extended release 20 meq PO DAILY diltiazem HCl 240 mg capsule,extended release 24hr 240 mg PO DAILY Referrals / Follow Up: Lai Morrow MD [Non-Staff] - Kiki Ortiz MD [Med Staff - Consulting] - Within 2 Weeks Floridalma Do MD [Med Staff - Education And Training Coordinator] - Within 2 Weeks (For possible leukocytoclastic vasculitis /rash) Cuca Cruz MD [Primary Care Provider] - Disposition Disposition (needs filled in before D/C Order can be placed): Home, Self Care
--- NOTE | 2024-05-07 11:46 | PCM.DC.SUM ---
Providers Date of Admission: 05/04/24 Date of Discharge: 05/07/24 Primary Care Physician: Dr. Cuca Cruz MD Consultations 05/04/24 21:10 Consult: Nephrology Routine Consulting Provider: Kiki Ortiz Reason for Consult: Vasculitis EMERGENT Consult: No Notified: Yes Date Notified: 05/05/24 Time Notified: 06:48 Method of Notification: Text 05/06/24 07:50 Consult: General Surgery Routine Consulting Provider: Nimesh Morel Reason for Consult: suspected vasculitis, needs skin biopsy EMERGENT Consult: No Notified: Yes Date Notified: 05/06/24 Time Notified: 07:50 Method of Notification: Text Reason For Visit: VASCULITIS WITH AFIB Diagnosis Discharge Diagnosis (1) Vasculitis: Status: Acute Code(s): I77.6 - Arteritis, unspecified Plan 58-year-old female was admitted with blisters patient was found to have erythematous patch on the legs and arms and generalized pain in the arms and legs that she was unable to get out of the bed and missed some days of work. She also has history of A-fib and was prescribed anticoagulant but she is not taking it. She was admitted on the monitored bed. 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 she also had ANDREA so concern is that this may be due to vasculitis. Admission creatinine was 1.3 improved to 1.01. ANDREA resolved C ANCA nad p ANCA ordered and pending Started on IV Solu-Medrol on admission. Nephrology consulted. Urinalysis showed elevated protein and hematuria. Patient had a full-thickness punch skin biopsy and pathology is pending. General surgery was consulted for skin biopsy ESR and CRP elevated. Nursing Clinical Director was consulted. Steroid was discontinued after his recommendation. Recommended to follow-up with wrecking supervisor Dr. Do. Follow-up with nephrology in 2 weeks. #Chronic A-fib: On Cardizem and Tikosyn. At home patient is also not taking anticoagulant. Does not show up on her home medication list. She has heating repair technician outside but trying to change to posterior. Anticoagulants on hold as patient will benefit from biopsy #Anxiety and depression: On duloxetine. Citalopram discontinued on admission due to her being already on a serotonin reuptake inhibitor. DVT prophylaxis: SCDs. Discharge medication reconciliation done. Discharge follow-up instructions completed. Discharge process discussed with the patient and all questions were answered to patient's satisfaction. Follow with PCP in 1 to 2 weeks Total time spent, exact 35 minutes on discharge meds reconciliation, examination, coordination of care with nurses and ancillary staff, review of imaging and blood test and discussion with the patient on follow-up instructions. Medications at Discharge Home Medications aspirin 81 mg chewable tablet (Susan Chewable Low Dose Aspirin) 1 tab PO DAILY preventative 05/04/24 citalopram 20 mg tablet 10 mg PO DAILY mood 05/04/24 diltiazem HCl 240 mg capsule,extended release 24 hr 240 mg PO DAILY heart 05/04/24 dofetilide 250 mcg capsule 250 mcg PO BID heart 05/04/24 duloxetine 30 mg capsule,delayed release 60 mg PO DAILY mood 05/04/24 potassium chloride 20 mEq tablet,extended release 20 meq PO DAILY suppliment 05/04/24 Physical Exam Narrative Seen and examined. No pain in the legs or arms. Patches are painless. No fever. ANDREA resolved. Physical exam General: Alert, Oriented x3, Cooperative HEENT: Atraumatic, PERRLA, EOMI, Normocephalic Oral: No Gingival or Mucosal Lesions/ Ulcerations Neck: Supple, No JVD, Negative Carotid Bruits Chest wall/Lungs: Air entry diminished in bilateral lung bases. No crepitation/rhonchi Cardiovascular: Regular rate, Regular Rhythm, Normal S1, Normal S2, No M/G/R Abdomen: Bowel Sounds Present, Soft, Non Tender, Non-Distended : No dysuria. No renal angle tenderness. No suprapubic tenderness. Extremities: No edema, Capillary Refill Less than 3 Seconds Skin: Palpable patches like purpura, painless or different size Musculoskeletal: No Tenderness to Palpation of Joints or Extremities Neurological: Cranial nerves II-XII grossly intact, DTR 2+/4. No acute focal neurological deficit. Psych/Mental Status: Normal Affect, Appropriate. Weight / BMI Weight Weight: 253 lb 8.505 oz Body Mass Index (BMI) 42.1 ABG / Lab / Microbiology Data 05/07/24 06:31 05/07/24 06:31 Laboratory: Laboratory Results - last 24 hr 05/05/24 08:45: Hep Bs Antigen Non-Reactive, Hepatitis C Antibody Non-Reactive, HIV 1&2 Antibody Non-Reactive 05/07/24 06:31: WBC 14.6 H, RBC 3.59 L, Hgb 10.8 L, Hct 34.1 L, MCV 95.0, MCH 30.1, MCHC 31.7 L, RDW Std Deviation 43.7, RDW Coeff of Mary 12.5, Plt Count 369, MPV 8.4, Immature Gran % (Auto) 2.100 H, Neut % (Auto) 75.2 H, Lymph % (Auto) 17.6 L, [place] % (Auto) 4.9, Eos % (Auto) 0.0, Baso % (Auto) 0.2, Absolute Neuts (auto) 11.0 H, Absolute Lymphs (auto) 2.56, Nucleated RBC % 0, Sodium 138, Potassium 4.2, Chloride 107, Carbon Dioxide 25.0, Anion Gap 6, BUN 28 H, Creatinine 1.01, Estim Creat Clear Calc 78.74, Est GFR (MDRD) Af Amer 73, Est GFR (MDRD) Non-Af 60, BUN/Creatinine Ratio 27.7 H, Glucose 112 H, Calcium 9.3 Microbiology: Microbiology 05/04/24 15:02 Urine, Clean Catch Urine Culture - Preliminary Mixed Gram Pos & Gram Neg Org D/C Instructions Discharge Diet: Low fat / Low cholesterol and 2000 mg Sodium Diet Weight Bearing Status: Weight bearing as tolerated Call your doctor if you observe: Fever of 101 or Higher, Coldness, Increased Pain, Numbness or Tingling, Change in Color, Inability to urinate, Inability to have a bowel movement, Shortness of breath, Dizziness, Fainting spells, Swelling in the ankles, Chest pain, Prolonged hiccupping, Increased palpitations (irregular heartbeat) and Calf discomfort DC O2, CPAP, BIPAP Needs Home O2 Discharge instructions: No When: IN 2 WEEKS Meaningful Use Info Meaningful Use Meaningful Use Diagnoses (Choose all that apply): None applicable Ischemic Stroke Statin Dosing Therapy Reference: STATIN DOSE THERAPY REFERENCE: * Patients > 75 years receive moderate or high dose statin therapy. * Patients 75 years or YOUNGER should receive HIGH intensity statin dose unless contraindicated. You will be required to document reason for non-treatment if statin daily dose does not meet guidelines. HIGH DOSE STATIN THERAPY DAILY Atorvastatin > than or = to 40 mg Rosuvastatin > than or = to 20 mg Amlodipine + Atorvastatin > than or = to 2.5/40 mg Ezetimibe + Simvastatin 10/80 mg Simvastatin 80mg Discharge Plan Admission Admit Date/Time: 05/04/24 20:24 Primary Reason for Your Visit: vasculitis Attending Provider: Familia Huynh Primary Care Provider: Cuca Cruz Consulting Providers: Kiki Ortiz; Venkata Dos Santos; Nimesh Morel; Rossi Cox; Rudy Nolan Discharge Orders/Prescriptions Prescriptions: Continued aspirin [Susan Chewable Aspirin] 81 mg tablet,chewable 1 tab PO DAILY dofetilide 250 mcg capsule 250 mcg PO BID duloxetine 30 mg capsule,delayed release(DR/EC) 60 mg PO DAILY citalopram 20 mg tablet 10 mg PO DAILY potassium chloride 20 mEq tablet extended release 20 meq PO DAILY diltiazem HCl 240 mg capsule,extended release 24hr 240 mg PO DAILY Referrals / Follow Up: Lai Morrow MD [Non-Staff] - Kiki Ortiz MD [Med Staff - Consulting] - Within 2 Weeks Floridalma Do MD [Med Staff - Electrical Automation Engineer] - Within 2 Weeks (For possible leukocytoclastic vasculitis /rash) Cuca Cruz MD [Primary Care Provider] - Vitor Dubose MD [Med Staff - Active Staff] - Within 1 Month (For paroxysmal/chronic A-fib) Disposition Disposition (needs filled in before D/C Order can be placed): Home, Self Care Charges/Coding Visit Charges Inpatient E&M: 25689 Disch Hosp >30min
--- NOTE | 2024-05-07 11:59 | CASEMGMT ---
Patient has order for discharge. RN CM in to discuss needs at discharge. Patient denies needs or help at discharge. Patient had no further questions or concerns.
[2024-05-07 16:08] LABS: ANTINUCLEAR ANTIBODIES DIRECT Negative (Negative); Complement C3 167 mg/dL (82-167); PROEL- A/G Ratio 0.6 (0.7-1.7); PROEL- Albumin 2.6 g/dL (2.9-4.4); PROEL- Alpha-1 Globulin 0.5 g/dL (0.0-0.4); PROEL- Alpha-2 Globulin 1.2 g/dL (0.4-1.0); PROEL- Gamma Globulin 1.6 g/dL (0.4-1.8); PROEL- Globulin, Total 4.3 g/dL (2.2-3.9); PROEL- TOTAL PROTEIN 6.9 g/dL (6.0-8.5); PROEL-M-Spike Comment: g/dL (Not Observed)
[2024-05-08 11:07] LABS: Cytoplasmic Ab (C-ANCA) >1:640 titer (Neg:<1:20); Perinuclear Ab (P-ANCA) <1:20 titer (Neg:<1:20)
== END 2024-05-07 12:58 | disposition home or self-care (01) | DRG 546 ==
LOC: ED 19:14 → PCU 22:31
PROVIDERS: Internal Medicine Nephrology; Student in an Organized Health Care Education/Training Program; Surgery; Admitting Provider Family Medicine; Emergency Provider Emergency Medicine; PCP Student in an Organized Health Care Education/Training Program; Referring Provider Family Medicine; Visit Provider Internal Medicine
DX: M31.0 Hypersensitivity angiitis (principal); F31.9 Bipolar disorder, unspecified; I48.20 Chronic atrial fibrillation, unspecified; F41.9 Anxiety disorder, unspecified; Z79.82 Long term (current) use of aspirin; Z79.899 Other long term (current) drug therapy; G47.30 Sleep apnea, unspecified
CPT/HCPCS: 36415; 71045; 80048; 80076; 81001; 82570; 82595; 84156; 84165; 84484; 85025; 85610; 85652; 85730; 86037; 86038; 86140; 86160; 86703; 86803; 87040; 87086; 87088; 87340; 88305; 93005; 96361; 96372; 96374; 96376; 97802; 99221; 99285; A4216; G0378

== ENCOUNTER → 2024-08-10 | Outpatient (CLI) | payer MEDICAID, SELFPAY ==
[2024-08-10 16:28] LABS: Color, Urine Yellow (Yellow); Glucose, Dipstick Normal (Normal); Ketone-Dipstick Negative (Negative); Leukocyte Esterase-Dipstick 100 /ul (Negative); Nitrite-Dipstick Negative (Negative); Occult Blood-Urine 150 /ul (Negative); Protein-Dipstick 100 mg/dl (Negative); Urine Bilirubin Dipstick Negative (Negative); Urine Clarity Sl. Cloudy (Clear); Urine Urobilinogen Normal (Normal)
[2024-08-10 17:59] LABS: Hepatitis B Surface Antigen Nonreactive (Nonreactive)
[2024-08-10 18:05] LABS: Albumin, Serum 3.4 g/dL (3.5-5.0); Anion Gap 18 (5-15); BUN 13 mg/dL (4-19); BUN/Creat Ratio 10.4 RATIO (10-20); Calcium,Total 9.5 mg/dL (7.6-11.0); Carbon Dioxide 16.2 mmol/L (21.0-32.0); Chloride 104 mmol/L (98-108); Creatinine, Serum 1.21 mg/dL (0.70-1.20); EST Glomerular Filtration Rate 53 (>60); Glucose 96 mg/dL (70-99); HIV Nonreactive (Nonreactive); Phosphorus 3.3 mg/dL (2.7-4.5); Potassium 4.1 mmol/L (3.3-5.1); Sodium Level 138 mmol/L (133-145)
== END | disposition home or self-care (01) ==
LOC: LAB 15:05
PROVIDERS: PCP Student in an Organized Health Care Education/Training Program; Referring Provider Internal Medicine Nephrology; Visit Provider Internal Medicine Nephrology
DX: I77.6 Arteritis, unspecified (principal)
CPT/HCPCS: 36415; 80069; 81002; 86037; 86703; 87340

== ENCOUNTER 2024-09-18 08:21 | Outpatient (CLI) | payer MEDICAID, SELFPAY ==
[2024-09-18] VITALS (9 sets, daily range): BP systolic 105–153; BP diastolic 61–106; PULSE 66–135; RESP 16; TEMP 35.4; O2SAT 96–98; BMI 44.4
[2024-09-18] MEDS: 0.9% NaCl Peripheral Flush Adult IV (08:45)
[2024-09-18] MEDS: Hydrocortisone Sod Succinate 100 MG/2 ML Vial IV (09:09)
[2024-09-18] MEDS: DiphenhydrAMINE 50 MG/ML Syringe 25 MG IV (09:12)
[2024-09-18] MEDS: RITUXIMAB PVVR IV (09:31)
[2024-09-18] MEDS: NORMAL SALINE 0.9% IV (09:31)
== END 2024-09-18 23:59 | disposition home or self-care (01) ==
PROVIDERS: PCP Student in an Organized Health Care Education/Training Program; Referring Provider Internal Medicine Nephrology; Visit Provider Internal Medicine Nephrology
DX: I77.82 Antineutrophilic cytoplasmic antibody [ANCA] vasculitis (principal)
CPT/HCPCS: 96415 ×3; 96375; 96413; A4216; Q5119

== ENCOUNTER 2024-10-02 09:41 | Outpatient (CLI) | payer MEDICAID, SELFPAY ==
[2024-10-02 09:46] VITALS: BP 119/90; PULSE 125; RESP 16; TEMP 35.5; O2SAT 98; BMI 44.1
[2024-10-02] MEDS: 0.9% NaCl Peripheral Flush Adult IV (10:17)
[2024-10-02] MEDS: NORMAL SALINE 0.9% IV (10:19)
[2024-10-02] MEDS: RITUXIMAB PVVR IV (10:19)
[2024-10-02 10:54] VITALS: BP 106/79; PULSE 97; RESP 16; TEMP 35.7; O2SAT 97
[2024-10-02 11:26] VITALS: BP 101/71; PULSE 124; RESP 16; TEMP 35.9; O2SAT 100
[2024-10-02 11:57] VITALS: BP 114/73; PULSE 123; RESP 16; TEMP 35.6
[2024-10-02 13:06] VITALS: BP 111/46; PULSE 129; RESP 16
[2024-10-02 14:05] VITALS: BP 113/85; PULSE 123; RESP 16; TEMP 36.2; O2SAT 98
== END 2024-10-02 23:59 | disposition home or self-care (01) ==
LOC: MEDOUTP 09:41
PROVIDERS: PCP Student in an Organized Health Care Education/Training Program; Referring Provider Internal Medicine Nephrology; Visit Provider Internal Medicine Nephrology
DX: I77.82 Antineutrophilic cytoplasmic antibody [ANCA] vasculitis (principal)
CPT/HCPCS: 96415 ×2; 96413; A4216; Q5119

== ENCOUNTER → 2025-01-10 | Outpatient (CLI) | payer MEDICAID, SELFPAY ==
[2025-01-10 15:40] LABS: Albumin, Serum 4.0 g/dL (3.5-5.0); Anion Gap 9 (5-15); BUN 18 mg/dL (4-19); BUN/Creat Ratio 15.1 RATIO (10-20); Calcium,Total 9.9 mg/dL (7.6-11.0); Carbon Dioxide 26.3 mmol/L (21.0-32.0); Chloride 104 mmol/L (98-108); Glucose 81 mg/dL (70-99); Potassium 4.2 mmol/L (3.3-5.1)
[2025-01-10 15:40] LABS: Color, Urine Yellow (Yellow); Glucose, Dipstick Normal (Normal); Ketone-Dipstick Negative (Negative); Leukocyte Esterase-Dipstick Negative /ul (Negative); Nitrite-Dipstick Negative (Negative); Occult Blood-Urine 50 /ul (Negative); Protein-Dipstick 30 mg/dl (Negative); Specific Gravity, Urine 1.020 (1.002-1.030); Urine Bilirubin Dipstick Negative (Negative)
== END | disposition home or self-care (01) ==
PROVIDERS: PCP Student in an Organized Health Care Education/Training Program; Referring Provider Internal Medicine Nephrology; Visit Provider Internal Medicine Nephrology
DX: I77.6 Arteritis, unspecified (principal)
CPT/HCPCS: 36415; 80069; 81002

== ENCOUNTER → 2025-04-24 | Outpatient (CLI) | payer MEDICAID, SELFPAY ==
[2025-04-24 09:52] LABS: Color, Urine Yellow (Yellow); Glucose, Dipstick Normal (Normal); Ketone-Dipstick Negative (Negative); Leukocyte Esterase-Dipstick Negative /ul (Negative); Nitrite-Dipstick Negative (Negative); Occult Blood-Urine 50 /ul (Negative); Protein-Dipstick Negative (Negative); Specific Gravity, Urine 1.015 (1.002-1.030); Urine Bilirubin Dipstick Negative (Negative)
[2025-04-24 10:17] LABS: Creatinine, Urine (random) 44.80 mg/dL (28.00-217.00); Microalbumin,Random Urine 50.7 mg/L (<20 mg/L)
[2025-04-24 10:18] LABS: Albumin, Serum 3.9 g/dL (3.5-5.0); Anion Gap 11 (5-15); BUN 18 mg/dL (4-19); BUN/Creat Ratio 16.9 RATIO (10-20); Calcium,Total 9.8 mg/dL (7.6-11.0); Carbon Dioxide 25.4 mmol/L (21.0-32.0); Chloride 103 mmol/L (98-108); Glucose 102 mg/dL (70-99); Potassium 4.2 mmol/L (3.3-5.1)
== END | disposition home or self-care (01) ==
PROVIDERS: PCP Student in an Organized Health Care Education/Training Program; Referring Provider Internal Medicine Nephrology; Visit Provider Internal Medicine Nephrology
DX: I77.6 Arteritis, unspecified (principal)
CPT/HCPCS: 36415; 80069; 81002; 82043; 82570